=== PATIENT | male | born 1995 | race Two or more races ===

== ENCOUNTER 2017-08-28 18:27 | Emergency (ER) | payer SELFPAY ==
[~2017-08-28] VITALS: Ht 170.2 cm; Wt 55.2 kg
[2017-08-28] MEDS ORDERED: PHENAZOPYRIDINE 200 MG TABLET PO ONE (19:30)
[2017-08-28] MEDS ORDERED: PHENAZOPYRIDINE 200 MG TABLET ONE (19:51)
[2017-08-28 19:57] LABS: MICROSCOPIC AUTO
[2017-08-28 20:02] LABS: CULTURE INDICATED? YES
[2017-08-28 20:09] VITALS: BP 121/77
== END 2017-08-28 20:21 | disposition home or self-care (01) ==
LOC: EDSEX 18:27 → ED 20:10
DX: N30.91 Cystitis, unspecified with hematuria (principal); F17.210 Nicotine dependence, cigarettes, uncomplicated
CPT/HCPCS: 81001; 87077; 87086; 87186; 99284

== ENCOUNTER 2017-10-28 21:28 | Emergency (ER) | payer MEDICAID ==
[~2017-10-28] VITALS: Ht 172.7 cm; Wt 70.0 kg
[2017-10-28 21:32] VITALS: BP 121/89
== END 2017-10-28 22:23 | disposition home or self-care (01) ==
LOC: ED 21:52
DX: K04.7 Periapical abscess without sinus (principal); K08.89 Other specified disorders of teeth and supporting structures
CPT/HCPCS: 99283